=== PATIENT | male | born 1995 | race American Indian/Alaskan Native ===

== ENCOUNTER 2017-11-03 17:42 | Inpatient (IN) | payer BC, MEDICAID ==
[2017-11-03] MEDS ORDERED: NACL 0.9% 1000 ML 1,000 ML IV ONE (18:02)
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
[2017-11-03 18:35] LABS: Basophils # (Auto) 0.2 K/mm3 (0.0-0.1); Basophils % (Auto) 1.5 % (0.0-1.8); Eosinophils # (Auto) 0.1 K/mm3 (0.0-0.4); Eosinophils % (Auto) 1.4 % (0.0-4.3); Hematocrit 46.7 % (35.5-45.6); Hemoglobin 15.6 gm/dl (11.8-15.2); Lymphocytes # (Auto) 2.4 K/mm3 (1.2-5.4); Lymphocytes % (Auto) 24.2 % (13.4-35.0); Mean Corpuscular HGB Conc 33 % (32-34); Mean Corpuscular Hemoglobin 32 pg (28-32); Mean Corpuscular Volume 95 fl (84-94); Monocytes % (Auto) 10.7 % (0.0-7.3); Platelet Count 297 K/mm3 (140-440); Red Blood Count 4.91 M/mm3 (3.65-5.03); Red Cell Distribution Width 15.2 % (13.2-15.2)
[2017-11-03 18:44] LABS: INR 1.08 (0.87-1.13)
[2017-11-03 18:59] LABS: Creatine Kinase MB 4.1 ng/mL (0.0-4.0)
--- NOTE | 2017-11-03 19:04 | Cat Scan Report ---
FINAL REPORT PROCEDURE: CT HEAD/BRAIN WO CON TECHNIQUE: Computerized tomography of the head was performed without contrast material. HISTORY: syncope, loss in vision COMPARISON: No prior studies are available for comparison. FINDINGS: No CT evidence of intracranial mass, hemorrhage, acute territorial infarction, or hydrocephalus. Intracranial arteries are symmetric in density. There is focal linear encephalomalacia in the right frontal lobe. Calvarium is intact. There is a francisca hole in the right frontal skull. Paranasal sinuses and mastoids are aerated. IMPRESSION: No CT evidence of acute intracranial abnormality
[2017-11-03 19:07] LABS: Free T4 (Free Thyroxine) 1.06 ng/dL (0.76-1.46)
[2017-11-03 19:26] LABS: Amorphous Crystals,Urine Few; Bacteria,Urine 4+ /HPF (Negative); Bilirubin,Urine NEG (Negative); Blood,Urine MOD (Negative); Color,Urine Yellow (Yellow); Mucus,Urine FEW /HPF; Urobilinogen,Urine < 2.0 mg/dL (<2.0)
--- NOTE | 2017-11-03 19:31 | XRay Report ---
FINAL REPORT EXAM: XR CHEST 1V AP HISTORY: possible Sepsis TECHNIQUE: upright single view chest PRIORS: None. FINDINGS: Cardiac and mediastinal contours are unremarkable. No focal pulmonary infiltrate is identified. No pleural fluid collection seen. Pulmonary vasculature is unremarkable. IMPRESSION: Negative single-view chest
[2017-11-03 19:32] LABS: Amphetamine Screen,Urine PRESUMPTIVE NEGATIVE; Benzodiazepines Screen,Urine PRESUMPTIVE NEGATIVE; Cannabinoid Screen,Urine PRESUMPTIVE NEGATIVE; Cocaine Screen,Urine PRESUMPTIVE NEGATIVE; Methadone Screen,Urine PRESUMPTIVE NEGATIVE; Opiate Screen,Urine PRESUMPTIVE NEGATIVE
[2017-11-03 19:33] LABS: BUN/Creatinine Ratio 23; Blood Urea Nitrogen 18 mg/dL (9-20)
[2017-11-03] MEDS ORDERED: LEVAQUIN 750MG/150ML 750 MG/150 ML BAG IV ONE (19:33)
[2017-11-03 19:50] LABS: Albumin 4.3 g/dL (3.9-5)
[2017-11-03 19:51] LABS: Hemolysis Index 4
[2017-11-03 20:01] LABS: Calcium 10.5 mg/dL (8.4-10.2)
[2017-11-03 20:03] LABS: Alanine Aminotransferase 11 units/L (7-56)
[2017-11-03] MEDS ORDERED: KEPPRA 1,000 MG/NS 0.75% 100ML 1,000 MG/100 ML BAG IV ONE (20:36)
--- NOTE | 2017-11-03 21:23 | Cat Scan Report ---
FINAL REPORT EXAM: CT ABDOMEN PELVIS WO CON HISTORY: ? kidney stones, recurernt cath obstruction TECHNIQUE: CT abdomen and pelvis without contrast PRIORS: None. FINDINGS: No acute abnormality identified in the lung bases. No focal abnormality identified within the liver parenchyma. The spleen demonstrates normal size and attenuation. No pancreatic abnormalities seen. Kidneys demonstrate no evidence of hydronephrosis or nephrolithiasis. No ureteral calculus identified. The adrenal glands are unremarkable. Abdominal aorta is normal in caliber. No pathologically enlarged lymph nodes are identified. No signs of free fluid or free air No evidence of small bowel dilatation. No pericolonic inflammatory changes are observed. There is a suprapubic catheter. There is also Rodriguez catheter present distal end within the urinary bladder. IMPRESSION: Suprapubic and Rodriguez catheters within the urinary bladder. Bladder is nondistended No evidence for bladder stone or nephrolithiasis.
[2017-11-04] MEDS ORDERED: SODIUM CHLORIDE FLUSH SYRINGE 10 ML IV PRN (00:28)
[2017-11-04] MEDS ORDERED: ZOFRAN IV PRN (00:28)
[2017-11-04] MEDS ORDERED: TYLENOL PO PRN (00:28)
[2017-11-04] MEDS ORDERED: MILK OF MAGNESIA PO PRN (00:28)
[2017-11-04] MEDS ORDERED: ATIVAN IV PRN (00:37)
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
[2017-11-04] MEDS: NACL 0.9% 1000 ML 1,000 ML IV SCH ×3 (02:58→23:16)
--- NOTE | 2017-11-04 09:07 | Progress Note ---
Assessment and Plan Assessment and plan: Seizure -Continue loading dose of IV Keppra -Continue seizure precautions with when necessary Ativan -Check EEG -CT of the head negative. -Neurology consult. Sepsis. -Patient meets criteria given the tachycardia, encephalopathy and diagnosis of UTI -Continue IV antibiotic and follow culture results. -Sepsis protocol, check lactic acid level Acute encephalopathy, probably postictal state vs toxic metabolic from sepsis -Head CT scan is negative -Will monitor clinically Mild hypercalcemia -Will place patient on IV fluid and monitor calcium level History of paraplegia -Patient to be turned frequently ?Obstructive uropathy According to the mother the patient is currently undergoing urology evaluation at [facility] for the urinary obstruction. CT of the abdomen and pelvis essentially negative. Consider urology consultation. DVT prophylaxis with Lovenox Additional 34 minutes spent Coordinating care after admission. History Interval history: Patient's mother is at the bedside and provided all the history. Hospitalist Physical - Constitutional Vitals: Temp Pulse Resp BP Pulse Ox 98.2 F 95 H 18 99/49 97 11/03/17 18:11 11/04/17 00:00 11/04/17 03:53 11/04/17 00:00 11/04/17 00:00 General appearance: Present: no acute distress, other (opens eyes to external rub, but unable to communicate) - EENT Eyes: Present: PERRL, EOM intact ENT: hearing intact, clear oral mucosa, dentition normal - Neck Neck: Present: supple, normal ROM - Respiratory Respiratory effort: normal Respiratory: bilateral: CTA - Cardiovascular Rhythm: regular Heart Sounds: Present: S1 & S2. Absent: gallop, rub - Extremities Extremities: no ischemia, No edema, Full ROM - Abdominal General gastrointestinal: soft, non-tender, non-distended, normal bowel sounds - Integumentary Integumentary: Present: clear, warm, dry - Neurologic Neurologic: CNII-XII intact, moves all extremities Results - Labs CBC & Chem 7: 11/03/17 18:17 11/03/17 18:17 Labs: Laboratory Last Values WBC 9.7 K/mm3 (4.5-11.0) 11/03/17 18:17 RBC 4.91 M/mm3 (3.65-5.03) 11/03/17 18:17 Hgb 15.6 gm/dl (11.8-15.2) H 11/03/17 18:17 Hct 46.7 % (35.5-45.6) H 11/03/17 18:17 MCV 95 fl (84-94) H 11/03/17 18:17 MCH 32 pg (28-32) 11/03/17 18:17 MCHC 33 % (32-34) 11/03/17 18:17 RDW 15.2 % (13.2-15.2) 11/03/17 18:17 Plt Count 297 K/mm3 (140-440) 11/03/17 18:17 Lymph % (Auto) 24.2 % (13.4-35.0) 11/03/17 18:17 [place] % (Auto) 10.7 % (0.0-7.3) H 11/03/17 18:17 Eos % (Auto) 1.4 % (0.0-4.3) 11/03/17 18:17 Baso % (Auto) 1.5 % (0.0-1.8) 11/03/17 18:17 Lymph # 2.4 K/mm3 (1.2-5.4) 11/03/17 18:17 [place] # 1.0 K/mm3 (0.0-0.8) H 11/03/17 18:17 Eos # 0.1 K/mm3 (0.0-0.4) 11/03/17 18:17 Baso # 0.2 K/mm3 (0.0-0.1) H 11/03/17 18:17 Seg Neutrophils % 62.2 % (40.0-70.0) 11/03/17 18:17 Seg Neutrophils # 6.0 K/mm3 (1.8-7.7) 11/03/17 18:17 PT 14.6 Sec. (12.2-14.9) 11/03/17 18:17 INR 1.08 (0.87-1.13) 11/03/17 18:17 D-Dimer 224.29 ng/mlDDU (0-234) 11/03/17 18:17 VBG pH 7.361 (7.320-7.420) 11/03/17 18:17 Sodium 138 mmol/L (137-145) 11/03/17 18:17 Potassium 4.2 mmol/L (3.6-5.0) 11/03/17 18:17 Chloride 97.7 mmol/L (98-107) L 11/03/17 18:17 Carbon Dioxide 22 mmol/L (22-30) 11/03/17 18:17 Anion Gap 23 mmol/L 11/03/17 18:17 BUN 18 mg/dL (9-20) 11/03/17 18:17 Creatinine 0.8 mg/dL (0.8-1.5) 11/03/17 18:17 Estimated GFR > 60 ml/min 11/03/17 18:17 BUN/Creatinine Ratio 23 % 11/03/17 18:17 Glucose 83 mg/dL (75-100) 11/03/17 18:17 Lactic Acid 1.70 mmol/L (0.7-2.0) 11/03/17 20:36 Calcium 10.5 mg/dL (8.4-10.2) H 11/03/17 18:17 Magnesium 1.80 mg/dL (1.7-2.3) 11/03/17 18:09 Total Bilirubin 0.30 mg/dL (0.1-1.2) 11/03/17 18:17 AST 13 units/L (5-40) 11/03/17 18:17 ALT 11 units/L (7-56) 11/03/17 18:17 Alkaline Phosphatase 71 units/L (35-129) 11/03/17 18:17 Total Creatine Kinase 121 units/L (55-170) 11/03/17 18:17 CK-MB (CK-2) 4.1 ng/mL (0.0-4.0) H 11/03/17 18:17 CK-MB (CK-2) Rel Index 3.3 (0-4) 11/03/17 18:17 Troponin T < 0.010 ng/mL (0.00-0.029) 11/03/17 18:17 Total Protein 7.5 g/dL (6.3-8.2) 11/03/17 18:17 Albumin 4.3 g/dL (3.9-5) 11/03/17 18:17 Albumin/Globulin Ratio 1.3 % 11/03/17 18:17 TSH 2.320 mlU/mL (0.270-4.200) 11/03/17 18:17 Free T4 1.06 ng/dL (0.76-1.46) 11/03/17 18:17 Urine Color Yellow (Yellow) 11/03/17 19:06 Urine Turbidity Clear (Clear) 11/03/17 19:06 Urine pH 8.0 (5.0-7.0) H 11/03/17 19:06 Ur Specific [place] 1.015 (1.003-1.030) 11/03/17 19:06 Urine Protein 100 mg/dl mg/dL (Negative) 11/03/17 19:06 Urine Glucose (UA) Neg mg/dL (Negative) 11/03/17 19:06 Urine Ketones Neg mg/dL (Negative) 11/03/17 19:06 Urine Blood Mod (Negative) 11/03/17 19:06 Urine Nitrite Pos (Negative) 11/03/17 19:06 Urine Bilirubin Neg (Negative) 11/03/17 19:06 Urine Urobilinogen < 2.0 mg/dL (<2.0) 11/03/17 19:06 Ur Leukocyte Esterase Lg (Negative) 11/03/17 19:06 Urine WBC (Auto) 103.0 /HPF (0.0-6.0) H 11/03/17 19:06 Urine RBC (Auto) 101.0 /HPF (0.0-6.0) 11/03/17 19:06 Urine Bacteria (Auto) 4+ /HPF (Negative) 11/03/17 19:06 Amorphous Crystals Few 11/03/17 19:06 Urine Mucus Few /HPF 11/03/17 19:06 Urine Opiates Screen Presumptive negative 11/03/17 19:06 Urine Methadone Screen Presumptive negative 11/03/17 19:06 Ur Barbiturates Screen Presumptive negative 11/03/17 19:06 Ur Phencyclidine Scrn Presumptive negative 11/03/17 19:06 Ur Amphetamines Screen Presumptive negative 11/03/17 19:06 U Benzodiazepines Scrn Presumptive negative 11/03/17 19:06 Urine Cocaine Screen Presumptive negative 11/03/17 19:06 U Marijuana (THC) Screen Presumptive negative 11/03/17 19:06 Drugs of Abuse Note Disclamer 11/03/17 19:06
[2017-11-04] MEDS: LOVENOX SUB-Q SCH (10:00)
[2017-11-04] MEDS: LEVAQUIN 750MG/150ML 750 MG/150 ML BAG IV SCH (10:00)
[2017-11-04] MEDS ORDERED: ULTRAM PO PRN (11:20)
[2017-11-04] MEDS ORDERED: COLACE PO PRN (11:20)
[2017-11-04] MEDS: SODIUM CHLORIDE FLUSH SYRINGE 10 ML IV SCH ×2 (11:44→23:17)
[2017-11-04] MEDS ORDERED: VENLAFAXINE HCL 100 MG PO SCH (14:00)
[2017-11-04] MEDS ORDERED: DANTROLENE SODIUM 100 MG PO SCH (14:00)
[2017-11-04] MEDS ORDERED: BACLOFEN 20 MG PO SCH (14:00)
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
[2017-11-04] MEDS: DANTRIUM PO SCH ×3 (14:55→23:15)
[2017-11-04] MEDS: PROAMATINE PO SCH ×3 (16:40→23:16)
[2017-11-04] MEDS: NEURONTIN PO SCH ×2 (19:19→23:14)
[2017-11-04] MEDS: EFFEXOR PO SCH ×4 (19:20→23:14)
[2017-11-04] MEDS: LIORESAL PO SCH ×2 (19:32→23:14)
[2017-11-04] MEDS ORDERED: NON-FORMULARY (Quetiapine Fumarate [Seroquel] 25 MG) PO SCH (22:00)
[2017-11-05 06:16] LABS: Basophils # (Auto) 0.1 K/mm3 (0.0-0.1); Basophils % (Auto) 0.7 % (0.0-1.8); Eosinophils # (Auto) 0.2 K/mm3 (0.0-0.4); Eosinophils % (Auto) 2.9 % (0.0-4.3); Hematocrit 38.3 % (35.5-45.6); Hemoglobin 12.3 gm/dl (11.8-15.2); Lymphocytes # (Auto) 2.8 K/mm3 (1.2-5.4); Mean Corpuscular HGB Conc 32 % (32-34); Mean Corpuscular Hemoglobin 31 pg (28-32); Mean Corpuscular Volume 97 fl (84-94); Monocytes % (Auto) 13.1 % (0.0-7.3); Platelet Count 239 K/mm3 (140-440); Red Blood Count 3.95 M/mm3 (3.65-5.03); Red Cell Distribution Width 15.5 % (13.2-15.2)
[2017-11-05 06:43] LABS: BUN/Creatinine Ratio 19; Blood Urea Nitrogen 13 mg/dL (9-20); Calcium 8.8 mg/dL (8.4-10.2); Hemolysis Index 3
[2017-11-05] MEDS: NEURONTIN PO SCH ×3 (09:09→21:00)
[2017-11-05] MEDS: EFFEXOR PO SCH ×6 (09:10→21:00)
--- NOTE | 2017-11-05 10:16 | Progress Note ---
Assessment and Plan Seizure -Continue IV Keppra -Continue seizure precautions with when necessary Ativan -Check EEG -CT of the head negative. -Neurology following. Sepsis. -Patient meets criteria given the tachycardia, encephalopathy and diagnosis of UTI -Continue IV antibiotic and follow culture results. -Sepsis protocol, check lactic acid level Acute encephalopathy, probably postictal state vs toxic metabolic from sepsis -Head CT scan is negative -Will monitor clinically Mild hypercalcemia: resolved History of paraplegia -Patient to be turned frequently Has appointment with [facility] for insertion of a device at ?Obstructive uropathy According to the mother the patient is currently undergoing urology evaluation at [facility] for the urinary obstruction. CT of the abdomen and pelvis essentially negative. Consider urology consultation. Discussed at length with pt's mother. DVT prophylaxis with Lovenox Subjective Date of service: 11/05/17 Principal diagnosis: Seizure d/o Interval history: No more seizure Objective - Constitutional Vitals: Vital Signs - 12hr 11/04/17 11/05/17 23:21 07:35 Temperature 97.9 F Pulse Rate 94 H 80 Respiratory 18 Rate Blood Pressure 96/48 104/51 O2 Sat by Pulse 97 97 Oximetry General appearance: Present: no acute distress, other (bed bound) - EENT Eyes: PERRL, EOM intact - Neck Neck: supple, normal ROM - Respiratory Respiratory: bilateral: CTA - Cardiovascular Rhythm: regular Heart Sounds: Present: S1 & S2. Absent: gallop, rub Extremities: pulses intact, No edema, normal color, Full ROM - Gastrointestinal General gastrointestinal: Present: soft, non-tender, non-distended, normal bowel sounds - Integumentary Integumentary: clear, warm, dry - Musculoskeletal Musculoskeletal: other (quadriplegic with contractures) - Neurologic Neurologic: other (quadriplegic with contractures) - Psychiatric Psychiatric: memory intact, appropriate mood/affect, intact judgment & insight - Labs CBC & Chem 7: 11/05/17 05:10 11/05/17 05:10 Labs: Abnormal lab results 11/05/17 11/05/17 Range/Units 05:10 05:10 MCV 97 H (84-94) fl RDW 15.5 H (13.2-15.2) % Lymph % (Auto) 37.0 H (13.4-35.0) % [place] % (Auto) 13.1 H (0.0-7.3) % [place] # 1.0 H (0.0-0.8) K/mm3 Creatinine 0.7 L (0.8-1.5) mg/dL Glucose 71 L (75-100) mg/dL
[2017-11-05] MEDS: LEVAQUIN 750MG/150ML 750 MG/150 ML BAG IV SCH (10:28)
[2017-11-05] MEDS: DANTRIUM PO SCH ×4 (10:32→22:19)
[2017-11-05] MEDS: PROAMATINE PO SCH ×2 (10:33→22:19)
[2017-11-05] MEDS: LIORESAL PO SCH ×3 (10:34→21:00)
[2017-11-05] MEDS: LOVENOX SUB-Q SCH (10:34)
[2017-11-05] MEDS: SODIUM CHLORIDE FLUSH SYRINGE 10 ML IV SCH ×2 (10:35→21:04)
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
[2017-11-05] MEDS ORDERED: NACL 0.9% 1000 ML 1,000 ML IV ONE (23:00)
[2017-11-05] MEDS ORDERED: NACL 0.9% 1000 ML 1,000 ML IV SCH (23:00)
[2017-11-05] MEDS ORDERED: NACL 0.9% IV SCH ×2 (23:45)
--- NOTE | 2017-11-06 07:36 | Magnetic Resonance Report ---
MRI OF THE BRAIN WITHOUT CONTRAST: HISTORY: Seizure PROCEDURE: Multiplanar, multisequence MR imaging of the brain without IV contrast was performed. FINDINGS: Compared to the CT head without contrast dated 11/04/27. MRI demonstrates an ill-defined area of increased T2 signal within the subcortical white matter and cortex of the left posterior frontal lobe and anterior left parietal lobe. This is best demonstrated on axial flair image 24 and coronal flair images 9-11. This area measures approximately 2 cm and appears to involve both the precentral gyrus and post central gyrus. The remaining sequences are unremarkable in this area. No evidence for diffusion restriction, hemorrhage or mass. A 9 mm focus of encephalomalacia/chronic infarct is identified in the right frontal white matter on flair axial image 22. The remaining brain parenchyma is within normal limits. The midline structures are central. The basal cisterns are patent. Normal ventricular size. The orbital cavities and sella turcica demonstrate no abnormality. The visualized paranasal sinuses and mastoid air cells are well aerated. IMPRESSION: Subtle, ill-defined area of T2 signal abnormality near the junction of the left posterior frontal lobe and left anterior parietal lobe as described above. This could represent nonspecific edema or gliosis. This does not have the signal characteristics of an acute infarct or obvious mass. An epileptogenic focus could be considered. 9 mm focus of chronic encephalomalacia in the right frontal white matter.
[2017-11-06] MEDS: EFFEXOR PO SCH ×4 (08:25→15:20)
[2017-11-06] MEDS: NEURONTIN PO SCH ×2 (08:25→15:20)
[2017-11-06] MEDS: LIORESAL PO SCH ×2 (09:17→15:19)
[2017-11-06] MEDS ORDERED: LEVAQUIN PO SCH (10:00)
[2017-11-06] MEDS: DANTRIUM PO SCH (11:47)
[2017-11-06] MEDS: PROAMATINE PO SCH (11:48)
[2017-11-06] MEDS: LOVENOX SUB-Q SCH (11:48)
[2017-11-06] MEDS: SODIUM CHLORIDE FLUSH SYRINGE 10 ML IV SCH (13:50)
--- NOTE | 2017-11-06 15:22 | Discharge Summary ---
Providers - Providers Date of Admission: 11/04/17 00:28 Attending physician: MIC FLORES MD 11/04/17 09:07 Consult to Physician [CONS] Routine Comment: Consulting Provider: ALEX MAGALLANES Physician Instructions: Reason For Exam: jared martinez 11/04/17 13:33 Consult to Wound/ET Nurse [CONS] Routine Reason For Exam: wound eval Primary care physician: HI LO DRIVER Hospitalization Condition: Stable Hospital course: Seizure -Continue IV Keppra -Continue seizure precautions with when necessary Ativan -Check EEG -CT of the head negative. -Neurology following. Sepsis. -Patient meets criteria given the tachycardia, encephalopathy and diagnosis of UTI -Continue IV antibiotic and follow culture results. -Sepsis protocol, check lactic acid level Acute encephalopathy, probably postictal state vs toxic metabolic from sepsis -Head CT scan is negative -Will monitor clinically Mild hypercalcemia: resolved History of paraplegia -Patient to be turned frequently Has appointment with [facility] for insertion of a device at ?Obstructive uropathy According to the mother the patient is currently undergoing urology evaluation at [facility] for the urinary obstruction. CT of the abdomen and pelvis essentially negative. Consider urology consultation. Discussed at length with pt's mother. DVT prophylaxis with Lovenox Disposition: DC-01 TO HOME OR SELFCARE Time spent for discharge: 33 minutes Core Measure Documentation - Palliative Care Palliative Care/ Comfort Measures: Not Applicable Exam - Constitutional Vitals: Temp Pulse Resp BP Pulse Ox 98.2 F 82 18 119/78 96 11/06/17 07:21 11/06/17 15:00 11/06/17 07:21 11/06/17 15:00 11/06/17 15:00 Plan Activity: no restrictions Additional Instructions: patient ok to go for urological procedure. should have repeat urine culture at [facility] after completing antibiotics Follow up with: PRIMARY CAREMD [Primary Care Provider] - 3-5 Days Prescriptions: Sulfamethoxazole/Trimethoprim [Bactrim DS TAB] 1 each PO BID #10 tablet
[2017-11-06 17:03] VITALS: BP 138/94
== END 2017-11-06 17:45 | disposition home health service (06) | DRG 871 ==
LOC: ED 17:42 → 3A 11-04 00:28
PROVIDERS: ADMIT Internal Medicine; ATTEND Internal Medicine
DX: A41.9 Sepsis, unspecified organism (principal); S14.155A Other incomplete lesion at C5 level of cervical spinal cord, initial encounter; G82.54 Quadriplegia, C5-C7 incomplete; G92 Toxic encephalopathy; N39.0 Urinary tract infection, site not specified; G82.20 Paraplegia, unspecified; R56.9 Unspecified convulsions; E83.52 Hypercalcemia; R61 Generalized hyperhidrosis; Z88.0 Allergy status to penicillin; V49.9XXA Car occupant (driver) (passenger) injured in unspecified traffic accident, initial encounter
CPT/HCPCS: 36415; 70450; 70551; 71045; 74176; 80048; 80053; 80307; 81001; 82140; 82550; 82553; 82805; 83735; 84439; 84443; 84484; 85025; 85379; 85610; 86850; 86900; 86901; 87040; 87086; 93005; 93010; J1650; J1953; J1956; J7030

== ENCOUNTER 2018-03-20 14:20 | Inpatient (IN) | payer BC, MEDICAID ==
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
[2018-03-20] MEDS ORDERED: NACL 0.9% 1000 ML 1,000 ML IV ONE (16:06)
[2018-03-20 16:49] LABS: Bacteria,Urine 2+ /HPF (Negative); Bilirubin,Urine NEG (Negative); Blood,Urine SM (Negative); Color,Urine Yellow (Yellow); Mucus,Urine FEW /HPF; Urobilinogen,Urine < 2.0 mg/dL (<2.0)
--- NOTE | 2018-03-20 17:14 | Cat Scan Report ---
FINAL REPORT PROCEDURE: CT head without contrast. TECHNIQUE: Computerized tomography of the head was performed without contrast material. HISTORY: Seizure. COMPARISON: CT head 11/03/2017. FINDINGS: The ventricles are normal in size. There is a small focus of diminished attenuation within subcortical and deep white matter of the right frontal lobe. This is close to a right frontal francisca hole. This may be secondary to a previous ventriculostomy placement. It is unchanged from the prior study. The hayes matter and white matter otherwise appear normal. There are no mass lesions. There is no intracranial hemorrhage. The calvarium appears intact. The mastoid air cells and paranasal sinuses are clear as far as visualized. IMPRESSION: Small area of encephalomalacia in the right frontal lobe. No interval change.
[2018-03-20 18:47] LABS: Hematocrit 52.2 % (35.5-45.6); Hemoglobin 17.6 gm/dl (11.8-15.2); Mean Corpuscular HGB Conc 34 % (32-34); Mean Corpuscular Hemoglobin 34 pg (28-32); Mean Corpuscular Volume 101 fl (84-94); Red Blood Count 5.18 M/mm3 (3.65-5.03)
[2018-03-20 19:13] LABS: BUN/Creatinine Ratio 13; Blood Urea Nitrogen 12 mg/dL (9-20); Calcium 10.2 mg/dL (8.4-10.2); Hemolysis Index 122; Platelet Count 226 K/mm3 (140-440)
[2018-03-20] MEDS ORDERED: LEVAQUIN 750MG/150ML 750 MG/150 ML BAG IV ONE (19:20)
[2018-03-20] MEDS ORDERED: KEPPRA 1,000 MG/NS 0.75% 100ML 1,000 MG/100 ML BAG IV ONE (19:25)
[2018-03-20] MEDS ORDERED: NACL 0.9% 1000 ML IV ONE (19:33)
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
[2018-03-20] MEDS ORDERED: TYLENOL PO PRN (19:41)
[2018-03-20] MEDS ORDERED: SODIUM CHLORIDE FLUSH SYRINGE 10 ML IV PRN (19:41)
[2018-03-20] MEDS ORDERED: ZOFRAN IV PRN (19:41)
[2018-03-20] MEDS ORDERED: AMBIEN PO PRN (19:43)
[2018-03-20] MEDS ORDERED: COLACE PO PRN (19:43)
[2018-03-20] MEDS ORDERED: ULTRAM PO PRN (19:56)
[2018-03-20] MEDS ORDERED: BACLOFEN 20 MG PO SCH (20:00)
[2018-03-20] MEDS ORDERED: VENLAFAXINE HCL 100 MG PO SCH (20:00)
--- NOTE | 2018-03-20 20:12 | XRay Report ---
FINAL REPORT EXAM: XR CHEST 1V AP HISTORY: chest pain TECHNIQUE: Frontal portable view of the chest Comparison: Chest x-ray dated November 03, 2017 FINDINGS: There is no evidence of infiltrate, pneumothorax the or pleural fluid collection. The cardiomediastinal silhouette is normal in appearance. The bony structures are notable for dextrocurvature of the thoracic spine. IMPRESSION: 1. No evidence of an acute pulmonary process.
[2018-03-20] MEDS ORDERED: DANTROLENE SODIUM 100 MG PO SCH (22:00)
[2018-03-20] MEDS ORDERED: NON-FORMULARY (Quetiapine Fumarate [Seroquel] 25 MG) PO SCH (22:00)
[2018-03-21] MEDS: LIORESAL PO SCH ×3 (00:37→22:13)
[2018-03-21] MEDS: PROAMATINE PO SCH ×3 (00:39→22:13)
[2018-03-21] MEDS ORDERED: DANTRIUM PO SCH (08:00)
[2018-03-21 08:38] LABS: Hematocrit 39.6 % (35.5-45.6); Hemoglobin 13.6 gm/dl (11.8-15.2); Mean Corpuscular HGB Conc 34 % (32-34); Mean Corpuscular Hemoglobin 34 pg (28-32); Mean Corpuscular Volume 99 fl (84-94); Platelet Count 205 K/mm3 (140-440); Red Cell Distribution Width 14.7 % (13.2-15.2)
[2018-03-21 08:58] LABS: BUN/Creatinine Ratio 14; Blood Urea Nitrogen 11 mg/dL (9-20); Hemolysis Index 4
[2018-03-21] MEDS: LEVAQUIN 750MG/150ML 750 MG/150 ML BAG IV SCH (09:21)
[2018-03-21] MEDS: NEURONTIN PO SCH ×4 (09:23→21:08)
[2018-03-21] MEDS: SODIUM CHLORIDE FLUSH SYRINGE 10 ML IV SCH ×3 (09:23→22:17)
[2018-03-21] MEDS: NACL 0.9% 1000 ML 1,000 ML IV SCH ×2 (09:25→23:04)
[2018-03-21] MEDS: DANTRIUM PO SCH ×5 (09:29→23:05)
[2018-03-21] MEDS: EFFEXOR PO SCH ×3 (13:07→21:10)
--- NOTE | 2018-03-21 13:21 | Progress Note ---
Assessment and Plan Sepsis - likely due UTI - IV antibiotic therapy, follow blood cultures/urine cx, - trend serial lactic acid. Breakthrough Seizure - Resume antiepileptic therapy with Depakote, negative CT head, cont supportive care. UTI (urinary tract infection) - IV antibiotic therapy, urinalysis, urine cx Encephalopathy - likely due to sepsis - CT Head, neuro checks, seizure precautions. DVT prophylaxis - lovenox Subjective Date of service: 03/21/18 Interval history: Pt seen and examined No acute event o/n Objective - Constitutional Vitals: Vital Signs - 12hr 03/21/18 03/21/18 02:00 04:15 Temperature 99.1 F Pulse Rate 96 H Pulse Rate [ 101 H Left Radial] Respiratory 13 18 Rate Blood Pressure 94/45 O2 Sat by Pulse 100 95 Oximetry General appearance: Present: no acute distress - EENT Eyes: PERRL, EOM intact ENT: hearing intact, clear oral mucosa Ears: bilateral: normal - Neck Neck: supple, normal ROM - Respiratory Respiratory effort: normal Respiratory: bilateral: CTA - Cardiovascular Rhythm: regular Heart Sounds: Present: S1 & S2. Absent: gallop, rub Extremities: pulses intact, No edema, normal color, Full ROM - Gastrointestinal General gastrointestinal: Present: soft, non-tender, non-distended, normal bowel sounds, other (Suprapubic catheter in place) - Genitourinary Male genitourinary: normal - Integumentary Integumentary: clear, warm, dry - Musculoskeletal Musculoskeletal: other (paraplegic) - Neurologic Neurologic: focal deficits, no gait normal - Psychiatric Psychiatric: memory intact, appropriate mood/affect, intact judgment & insight - Labs CBC & Chem 7: 03/22/18 06:08 03/21/18 08:08 Labs: Abnormal lab results 03/20/18 03/20/18 03/20/18 Range/Units 16:08 16:17 19:29 WBC (4.5-11.0) K/mm3 RBC (3.65-5.03) M/mm3 Hgb (11.8-15.2) gm/dl Hct (35.5-45.6) % MCV (84-94) fl MCH (28-32) pg Potassium (3.6-5.0) mmol/L Lactic Acid 2.60 H* (0.7-2.0) mmol/L Total Creatine Kinase 254 H (55-170) units/L Urine WBC (Auto) 90.0 H (0.0-6.0) /HPF 03/20/18 03/20/18 03/20/18 Range/Units 20:46 Unknown Unknown WBC 13.5 H (4.5-11.0) K/mm3 RBC 5.18 H (3.65-5.03) M/mm3 Hgb 17.6 H (11.8-15.2) gm/dl Hct 52.2 H (35.5-45.6) % MCV 101 H (84-94) fl MCH 34 H (28-32) pg Potassium 5.5 H (3.6-5.0) mmol/L Lactic Acid 2.80 H* (0.7-2.0) mmol/L Total Creatine Kinase (55-170) units/L Urine WBC (Auto) (0.0-6.0) /HPF 03/21/18 03/21/18 Range/Units 01:28 08:08 WBC 18.0 H (4.5-11.0) K/mm3 RBC (3.65-5.03) M/mm3 Hgb (11.8-15.2) gm/dl Hct (35.5-45.6) % MCV 99 H (84-94) fl MCH 34 H (28-32) pg Potassium (3.6-5.0) mmol/L Lactic Acid 5.50 H* (0.7-2.0) mmol/L Total Creatine Kinase (55-170) units/L Urine WBC (Auto) (0.0-6.0) /HPF
[2018-03-21] MEDS: KEPPRA 750 MG in NACL 0.9% 100 ML IV SCH ×2 (13:22→22:10)
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
[2018-03-22 06:06] VITALS: BP 124/75
[2018-03-22 06:32] LABS: Basophils % (Auto) 0.3 % (0.0-1.8); Eosinophils # (Auto) 0.2 K/mm3 (0.0-0.4); Eosinophils % (Auto) 1.8 % (0.0-4.3); Hematocrit 38.3 % (35.5-45.6); Hemoglobin 12.8 gm/dl (11.8-15.2); Lymphocytes # (Auto) 3.1 K/mm3 (1.2-5.4); Mean Corpuscular HGB Conc 33 % (32-34); Mean Corpuscular Hemoglobin 34 pg (28-32); Mean Corpuscular Volume 101 fl (84-94); Monocytes # (Auto) 1.2 K/mm3 (0.0-0.8); Monocytes % (Auto) 10.5 % (0.0-7.3); Platelet Count 183 K/mm3 (140-440); Red Blood Count 3.81 M/mm3 (3.65-5.03)
[2018-03-22] MEDS: EFFEXOR PO SCH ×2 (08:04→13:22)
[2018-03-22] MEDS: NEURONTIN PO SCH ×2 (08:04→13:21)
[2018-03-22] MEDS: KEPPRA 750 MG in NACL 0.9% 100 ML IV SCH (10:00)
[2018-03-22] MEDS: LIORESAL PO SCH (10:00)
[2018-03-22] MEDS: DANTRIUM PO SCH ×3 (10:01→17:28)
[2018-03-22] MEDS: PROAMATINE PO SCH (10:02)
[2018-03-22] MEDS: LEVAQUIN 750MG/150ML 750 MG/150 ML BAG IV SCH (10:02)
[2018-03-22] MEDS: SODIUM CHLORIDE FLUSH SYRINGE 10 ML IV SCH (10:03)
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
[2018-03-22] MEDS ORDERED: DULCOLAX PR SCH (22:00)
[2018-03-23] MEDS ORDERED: KEPPRA PO SCH (10:00)
[2018-03-23] MEDS ORDERED: LEVAQUIN PO SCH (10:00)
== END 2018-03-22 18:00 | disposition home health service (06) | DRG 871 ==
LOC: ED 14:20 → 3A 19:41
PROVIDERS: ADMIT Internal Medicine; ATTEND Internal Medicine
DX: A41.9 Sepsis, unspecified organism (principal); G93.40 Encephalopathy, unspecified; N39.0 Urinary tract infection, site not specified; G82.20 Paraplegia, unspecified; G40.909 Epilepsy, unspecified, not intractable, without status epilepticus; Z88.0 Allergy status to penicillin; Z79.899 Other long term (current) drug therapy; Z87.442 Personal history of urinary calculi
CPT/HCPCS: 36415; 70450; 71045; 80048; 80164; 81001; 82140; 82550; 85025; 85027; 87040; 87086; 96361; 96365; 96367; J1953; J1956; J7030

== ENCOUNTER 2021-08-25 12:14 | Emergency (ER) | payer MEDICAID ==
[2021-08-25 12:46] VITALS: BP 119/75
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
== END 2021-08-25 18:48 | disposition home or self-care (01) ==
LOC: ED 12:14
DX: T83.010A Breakdown (mechanical) of cystostomy catheter, initial encounter (principal); Z88.0 Allergy status to penicillin; Z87.891 Personal history of nicotine dependence
CPT/HCPCS: 51702; 99283

== ENCOUNTER 2021-10-12 13:22 | Emergency (ER) | payer BC, MEDICAID ==
[2021-10-12 14:28] VITALS: BP 101/68
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
== END 2021-10-12 16:45 | disposition home or self-care (01) ==
LOC: ED 13:22
DX: Z46.6 Encounter for fitting and adjustment of urinary device (principal); G82.20 Paraplegia, unspecified; R56.9 Unspecified convulsions; N20.0 Calculus of kidney
CPT/HCPCS: 51702; 99282

== ENCOUNTER 2022-01-23 00:21 | Emergency (ER) | payer BC, MEDICAID ==
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
[2022-01-23 04:40] VITALS: BP 104/44
== END 2022-01-23 05:55 | disposition home or self-care (01) ==
LOC: ED 00:21
DX: T83.018A Breakdown (mechanical) of other urinary catheter, initial encounter (principal); Z88.0 Allergy status to penicillin; Z87.891 Personal history of nicotine dependence
CPT/HCPCS: 99283